=== PATIENT | male | born 1990 | race African-American/Black ===

== ENCOUNTER 2017-12-01 09:37 | Emergency (ER) | payer OTHER ==
[~2017-12-01] VITALS: Ht 182.9 cm; Wt 93.2 kg
[~2017-12-01 09:37] MED LIST: NOCURR
[2017-12-01] MEDS ORDERED: HYDROCODONE/ACETAMINOPHEN 5-325 MG TABLET PO ONE (11:00)
[2017-12-01] MEDS ORDERED: KETOROLAC TROMETHAMINE 60 MG/2 ML VIAL IM ONE (11:00)
[2017-12-01 11:40] VITALS: BP 126/81
== END 2017-12-01 11:42 | disposition home or self-care (01) ==
LOC: EMS 09:38
DX: S86.012A Strain of left Achilles tendon, initial encounter (principal); X58.XXXA Exposure to other specified factors, initial encounter; Y93.67 Activity, basketball; Y92.89 Other specified places as the place of occurrence of the external cause; Y99.8 Other external cause status
CPT/HCPCS: 29515; 96372; 99283; J1885

== ENCOUNTER 2017-12-06 12:50 | Emergency (ER) | payer SELFPAY ==
[~2017-12-06] VITALS: Ht 177.8 cm; Wt 90.9 kg
[2017-12-06] MEDS ORDERED: IBUP-2354 PO (12:55)
[2017-12-06] MEDS ORDERED: PAIN MEDICATION PO (12:55)
[2017-12-06 17:02] VITALS: BP 132/81
== END 2017-12-06 17:20 | disposition home or self-care (01) ==
LOC: EMS 12:50
DX: M25.572 Pain in left ankle and joints of left foot (principal); Z76.0 Encounter for issue of repeat prescription; Z47.89 Encounter for other orthopedic aftercare
CPT/HCPCS: 99283

== ENCOUNTER 2017-12-16 21:56 | Emergency (ER) | payer SELFPAY ==
[~2017-12-16] VITALS: Ht 175.3 cm; Wt 86.4 kg
[~2017-12-16 21:56] MED LIST changes: +IBUP-2354 PO; -NOCURR; +PAIN MEDICATION PO
[2017-12-16 22:08] VITALS: BP 148/91
[2017-12-16] MEDS ORDERED: hydrocodone PO (22:13)
== END 2017-12-17 00:05 | disposition left against medical advice (07) ==
LOC: EMS 21:56
DX: M25.579 Pain in unspecified ankle and joints of unspecified foot (principal); Z53.21 Procedure and treatment not carried out due to patient leaving prior to being seen by health care provider